=== PATIENT | female | born 1995 | race Caucasian/White ===

== ENCOUNTER → 2017-08-26 | Outpatient (CLI) | payer SELFPAY ==
[~2017-08-26] MED LIST: MOTRIN 800800 MG/TAB PO; PERCOCET 325 MG1 TA2 PO; PRENATAL PLUS
== END ==
LOC: COL.RAD 12:45
DX: N93.8 Other specified abnormal uterine and vaginal bleeding (principal); N72 Inflammatory disease of cervix uteri

== ENCOUNTER 2018-06-26 19:24 | Outpatient (CLI) | payer MEDICAID ==
[~2018-06-26] VITALS: Ht 170.2 cm; Wt 80.9 kg
[2018-06-26 19:45] VITALS: BP 129/82; PULSE 89; TEMP 98.5
[2018-06-26] MEDS ORDERED: ZANTAC 150MG T150 MG PO (19:56)
[2018-06-26 20:50] VITALS: BP 129/82; PULSE 89; TEMP 98.5
== END 2018-06-26 20:30 | disposition home or self-care (01) ==
LOC: COL.ER 19:24 → LDRO 19:24 → EDSTATUS 19:43 → LDRO 20:30
DX: O62.9 Abnormality of forces of labor, unspecified (principal); O99.89 Other specified diseases and conditions complicating pregnancy, childbirth and the puerperium; R05 Cough; Z3A.32 32 weeks gestation of pregnancy

== ENCOUNTER 2018-07-28 06:26 | Inpatient (IN) | payer MEDICAID ==
[2018-07-28] VITALS (36 sets, daily range): BP systolic 97–132; BP diastolic 56–87; PULSE 54–92; TEMP 97.9–98.5
[~2018-07-28] VITALS: Ht 172.7 cm; Wt 82.7 kg
[~2018-07-28 06:26] MED LIST changes: +ZANTAC 150MG T150 MG PO
[2018-07-28 08:09] LABS: BASO # 0.1 (0.0-0.2); BASO % 0.5 % (0.0-2.0); EOS # 0.4 (0.0-0.7); EOS % 4.1 % (0-4.0); GRAN % 67.5 % (42.2-75.2); HEMATOCRIT 37.7 % (37.0-47.0); HEMOGLOBIN 12.8 g/dl (12.5-16.0); LYMPH # 2.2 (1.2-3.4); LYMPH % 20.8 % (20.0-51.0); MEAN CELL VOLUME 96 fl (80.0-100.0); MEAN CORPUSCULAR HEMOGLOBIN 33 pg (27.0-31.0); MEAN CORPUSCULAR HGB CONC 34 g/dl (33.0-37.0); MEAN PLATELET VOLUME 12.6 fl (7.4-10.4); MONO # 0.7 (0.1-0.6); MONO % 6.7 % (1.7-9.3); PLATELET COUNT 220 K/mm3 (130-400); RED BLOOD COUNT 3.94 M/mm3 (4.10-5.30); REDCELL DISTRIBUTION WIDTH-CV 13.3 % (11.5-14.5)
[2018-07-28] MEDS ORDERED: IBU600 MG PO (14:46)
[2018-07-29 08:48] VITALS: BP 117/74; PULSE 61; TEMP 97.4
[2018-07-29] MEDS ORDERED: PERCOCET 325 MG1 TA2 PO (10:26)
== END 2018-07-29 16:00 | disposition home or self-care (01) | DRG 775 ==
LOC: OB 06:26 → LDR 06:56 → OB 10:29
PROVIDERS: Obstetrics & Gynecology
PROC: 10E0XZZ Delivery of Products of Conception, External Approach (ICD-10-PCS; principal; 2018-07-28)
PROC: 10907ZC Drainage of Amniotic Fluid, Therapeutic from Products of Conception, Via Natural or Artificial Opening (ICD-10-PCS; 2018-07-28)
PROC: 3E033VJ Introduction of Other Hormone into Peripheral Vein, Percutaneous Approach (ICD-10-PCS; 2018-07-28)
PROC: 0UQMXZZ Repair Vulva, External Approach (ICD-10-PCS; 2018-07-28)
DX: O36.5930 Maternal care for other known or suspected poor fetal growth, third trimester, not applicable or unspecified (principal); Z3A.37 37 weeks gestation of pregnancy; Z37.0 Single live birth; O70.0 First degree perineal laceration during delivery; O99.344 Other mental disorders complicating childbirth; F41.8 Other specified anxiety disorders
CPT/HCPCS: J2590; J2795; J7120